=== PATIENT | female | born 1995 | race African-American/Black ===

== ENCOUNTER 2016-11-01 18:39 | Emergency (ER) | payer SELFPAY ==
[~2016-11-01] VITALS: Ht 167.6 cm; Wt 59.0 kg
[2016-11-01 18:43] VITALS: BP 132/73
[2016-11-01] MEDS ORDERED: HYDROCODONE/APAP 10/325MG 1 EA TABLET ONE (19:35)
[2016-11-01] MEDS ORDERED: HYDROCODONE/APAP 10/325MG 1 EA TABLET PO ONE (20:00)
== END 2016-11-01 21:04 | disposition home or self-care (01) ==
LOC: ER 18:42
DX: S60.222A Contusion of left hand, initial encounter (principal); V43.52XA Car driver injured in collision with other type car in traffic accident, initial encounter; Y93.89 Activity, other specified; Y92.89 Other specified places as the place of occurrence of the external cause; Y99.9 Unspecified external cause status
CPT/HCPCS: 73130; 99284; A4606; A6402; Z7610